=== PATIENT | male | born 1945 | race Caucasian/White ===

== ENCOUNTER 2016-10-04 08:12 | Inpatient (IN) | payer MEDICARE, BC, OTHER ==
--- NOTE | ~2016-10-04 | IDS ---
Interim Discharge Summary [facility] [address] [place]. [address] NAME: MIO GRULLON : 45 STATUS : ADM IN PAT#: [id number] AGE: 71 ADM/REG DATE : 10/04/16 MR#: [id number] REPORT SERV DATE: 10/08/16 DICTATED BY: MUSTAPHA BIRIMNGHAM DATE: 10/08/16 REPORT STATUS : Draft TRANSCRIBED BY: MODL DATE: 10/08/16 ADMISSION DATE: 10/04/2016 DISCHARGE DATE: CURRENT INTERIM DIAGNOSES LIST: Include, 1. Non-ST elevation myocardial infarction, coronary artery disease. 2. Hypertension. 3. Postop hyperglycemia with no history of diabetes, hemoglobin A1c 5.6. 4. Hyponatremia, most recently 130. 5. Small apical pneumothorax bilaterally. HISTORY OF PRESENT ILLNESS: This is a very pleasant 71-year-old white male, who originally presented to [facility] with a complaint of chest pain. Please see initial H and P of Dr. Ackerman. The patient admitted to the Hospitalist Service for further evaluation and treatment. CONSULTS DURING THIS ADMISSION: Include Cardiology Dr. Mensah; and Cardiothoracic Surgery, Dr. Silva; and Yaakov Gonsalez, nurse practitioner. Please see the discharge summary from [facility] by Dr. Ackerman as the patient was transferred to [facility] for heart catheterization. His cardiac catheterization showed obstructive coronary disease and was performed on 10/04/2016. Afterwards, he was seen in consultation by Cardiothoracic Surgery who planned for coronary artery bypass grafting. The patient did have an echocardiogram performed as well which an echocardiogram showed a normal ejection fraction with some mild to moderate mitral regurgitation, trace aortic stenosis. Carotid ultrasound showed normal carotid flow. No significant blockage. I saw the patient postoperatively where he was recovering well from his bypass surgery. Blood pressures were stable. I transitioned him off his IV insulin drip where he was on a simple sliding scale NovoLog for 24 hours postoperatively and then this was discontinued as well as he has no history of diabetes. He continues to do well, mobilizing and using his ICS, however, on chest x-ray review, he does have bilateral small apical pneumothorax, so we will follow up with chest x- ray in the a.m. and he is slightly hyponatremic, so I have put him on a slight fluid restriction with followup lab work. Overall, the patient has done well, and hopefully, we will be able to be discharged in the next 24 to 48 hours to home and appreciate Cardiology and Cardiothoracic Surgery's help on this patient. SEBASTIAN/NATANAEL Mustapha [place] NP / [id number] CC: Taina Cali M.D.
--- NOTE | ~2016-10-04 | DS ---
Discharge Summary [facility] [address] [facility] [place]. [address] NAME: MIO GRULLON : 45 STATUS : DIS IN PAT#: [id number] AGE: 71 ADM/REG DATE : 10/04/16 MR#: [id number] REPORT SERV DATE: 10/10/16 DICTATED BY: LINDSEY ARANGO DATE: 10/10/16 REPORT STATUS : Draft TRANSCRIBED BY: MODL DATE: 10/10/16 ADMISSION DATE: 10/04/2016 DISCHARGE DATE: 10/10/2016 ADDENDUM: This is addendum to the dictation on interim discharge summary dictated by nurse practitioner, Mustapha Renae, on 10/08/2016. I saw this patient on the next day on 10/09/2016 and on 10/10/2016, on the date of discharge. FINAL DIAGNOSES: 1. Status post non-ST elevation myocardial infarction. 2. Status post coronary artery bypass grafting. 3. Postoperative hyperglycemia, improved. 4. Hyponatremia, resolved. 5. Small apical pneumothorax, resolved, improved. 6. Fever, resolved. CONSULTANTS ON THE CASE: Cardiothoracic surgeon, Dr. Silva, and his nurse practitioner, Yaakov Gonsalez, as well as property field adjuster, Dr. Santiago. SURGERIES DONE: Coronary artery bypass grafting done by cardiothoracic surgeon, Dr. Silva, on 10/06/2016. Chest x-ray done on 10/10/2016 showed small bilateral pneumothoraces in the apices, unchanged since yesterday; basilar atelectasis with small effusions, unchanged from previous studies. For the details of hospitalization before 10/09/2016, please refer to interim discharge summary dictated by Mustapha Renae on 10/08/2016. The patient was transferred to [facility] and was seen by Mustapha Renae, and I saw only on 10/09/2016 and 10/10/2016. The patient was doing well. Yesterday, he had low-grade fever spikes, which have resolved today. He has normal urinalysis. Chest x-ray showed improvement for his pneumothorax. He was evaluated by cardiothoracic surgeons, nurse practitioner, Yaakov Gonsalez, he was okay with the patient to be discharged, as well as property field adjuster, Dr. Santiago, saw the patient today and he was okay to be discharged. The patient was afebrile and doing well and he was ready to be discharged home. He was discharged in stable condition. Dr. Santiago gave him prescriptions for Toprol-XL 25 mg p.o. daily as well as he will continue Lipitor 80 mg daily, aspirin 81 mg daily, multivitamins daily, lisinopril 10 mg a day, and glucosamine one tablet daily. The patient is to follow up with Dr. Mensah, his property field adjuster, on the 10/25/2016 at 0945 hours, follow up with Dr. Silva on 10/30/2016 at 10 o'clock, and with Dr. Morales Hernandez in one week on 10/17/2016 at 1500 hours. The patient was discharged in stable condition. I spent 45 minutes on discharge. Discharge Summary [address] [address] NAME: MIO GRULLON : 45 STATUS : DIS IN PAT#: [id number] AGE: 71 ADM/REG DATE : 10/04/16 MR#: [id number] REPORT SERV DATE: 10/10/16 DICTATED BY: LINDSEY ARANGO DATE: 10/10/16 REPORT STATUS : Draft TRANSCRIBED BY: NATANAEL DATE: 10/10/16 /NATANAEL Lindsey Arango M.D. / [id number] CC: [place] M.D.
--- NOTE | ~2016-10-04 | OP ---
Record Of Operation [facility] [address] [place]. [address] NAME: MIO GRULLON : 45 STATUS : ADM IN [facility]#: [id number] AGE: 71 ADM/REG DATE : 10/04/16 MR#: [id number] REPORT SERV DATE: 10/06/16 DICTATED BY: TAWANDA WARREN DATE: 10/05/16 REPORT STATUS : Draft TRANSCRIBED BY: MODL DATE: 10/05/16 DATE OF PROCEDURE: 10/05/2016 ATTENDING SURGEON: Tawanda Warren MD. ASSISTANTS: Kip Warren ANESTHESIOLOGIST: Morales Wilson M.D. PREOPERATIVE DIAGNOSES: 1. Non-ST segment elevation myocardial infarction. 2. Three-vessel coronary artery disease. 3. Hypertension. 4. Ktbr-go-ixkdxdox mitral regurgitation. POSTOPERATIVE DIAGNOSES: 1. Non-ST segment elevation myocardial infarction. 2. Three-vessel coronary artery disease. 3. Hypertension. 4. Krok-kz-wmyiweme mitral regurgitation with trace mild mitral regurgitation and trace AI. OPERATION PROCEDURE PERFORMED: 1. Median sternotomy. 2. Extracorporeal circulation. 3. Urgent coronary artery bypass grafting x4, left internal mammary artery, left anterior descending, reverse greater saphenous vein graft to D1, reverse greater saphenous vein graft to obtuse marginal #3, reverse greater saphenous vein graft to posterior descending artery. 4. PRASAD. 5. Endoscopic vein harvest of the right leg and the left thigh. COMPLICATIONS: None. POSTOPERATIVE CONDITION: Stable to CVICU. TUBES AND DRAINS: A 32-Moroccan straight mediastinal chest tube. A 24-Moroccan Edmundo drain at the left pleural space. Atrial and ventricular wires were placed. INTRAOPERATIVE FINDINGS: LAD was intramyocardial. There was excellent Doppler signal, all grafts both pre and post protamine. The right vein was taken out for the entire leg and a large portion of it from the middle portion of the leg was unusable secondary to extremely small size. Left thigh was used. The vein was 3-4 mm good conduit. Transesophageal echo showed preprocedure trace AI, nhxi-vd-caisfyun MR with normal function, postprocedure, post bypass, trace AI, trace to mild mitral regurgitation with normal function. Record Of Operation [facility] [address] [place]. [address] NAME: MIO GRULLON : 45 STATUS : ADM IN PAT#: [id number] AGE: 71 ADM/REG DATE : 10/04/16 MR#: [id number] REPORT SERV DATE: 10/06/16 DICTATED BY: TAWANDA WARREN DATE: 10/05/16 REPORT STATUS : Draft TRANSCRIBED BY: MODL DATE: 10/05/16 DETAILS OF CARDIOPULMONARY BYPASS GRAFTIN. Graft #1, left internal mammary artery, left anterior descending was 1.75 mm target. 2. Graft #2 reverse greater saphenous vein graft to D2. This was 1.5 mm diffusely diseased target. 3. Graft #3, reverse greater saphenous vein graft to obtuse margin, this was 1.75 mm target. 4. Graft #4, reverse greater saphenous vein graft to posterior descending artery. This was a 2 mm target. INDICATIONS FOR PROCEDURE: Mr. Grullon is a 71-year-old gentleman with a history of hypertension, a strong family history of early coronary artery disease who presented with rapid onset chest pain with troponin to 4. He was admitted for an NSTEMI, sternum heparin drip and ultimately had resolution of his symptoms, referred and for catheterization. Heart catheterization showed severe multivessel disease and moderate MR. He was seen, evaluated. Risks, benefits, alternatives were discussed with the patient including, but not limited to, bleeding, infection, stroke, , heart attack, need for future operations. All questions were answered. STS risk was calculated and discussed with the patient. Mortality 1%, morbidity mortality of 10%. PROCEDURE: The patient was brought to the operating room, placed supine on the operating room table. After satisfactory induction of general endotracheal anesthesia, was prepped and draped in usual sterile fashion. Median sternotomy was performed while endoscopic vein harvest was performed from the right left leg while a median sternotomy was performed. The internal mammary artery was taken down as a pedicle graft from its takeoff under the subclavian vein the bifurcation of the diaphragm. Systemic heparinization was achieved. The pedicle was clipped and divided with bifurcation after 3 minutes, it was infiltrated with papaverine. A 24-Moroccan Edmundo was placed in the left pleural space and exteriorized. The thymic tissue was divided in the midline. Pericardium was opened in the midline. Pericardial well was created. Ascending aortic cannulation was achieved through dual pursestring high on the ascending aorta. Antegrade root vent cardioplegia tack was placed. The dual stage venous cannula was placed. The conduit was inspected and prepared for bypass. The internal mammary was brought down through a wide V in the pericardium. The cardiopulmonary bypass was initiated after documentation of an adequate ACT. The targets were inspected. The LAD was felt to be intramyocardial, it was found after dissection. The cross-clamp was brought up and the heart was arrested with cold antegrade cardioplegia, switching to intermittent aliquots every 15 to 20 minutes throughout the remainder of the crossclamp. The vein grafts were performed as mentioned in the findings. The proximal anastomoses were performed after enlarging aortotomy with a 4.5 mm punch, vein graft markers were placed. All distal anastomoses were performed with 8-0 Surgipro. The internal mammary artery was brought down through a wide V in the pericardium and anastomosed to the left anterior descending with 8-0 Surgipro. The bulldog was removed. There was excellent flow both pre and post, the anastomosis and the graft, the pedicle was attached to the heart in two places using 6-0 Prolene. The grafts were de-aired. The cross-clamp was removed. Atrial and ventricular pacing wires were placed. The patient was able to be weaned cardiopulmonary bypass without incident. Protamine was administered. He was decannulated. All cannulation sites were oversewn with 4-0 Prolene. Hemostasis was achieved. A 32-Moroccan Record Of Operation [address] [address] NAME: MIO GRULLON : 45 STATUS : ADM IN PAT#: [id number] AGE: 71 ADM/REG DATE : 10/04/16 MR#: [id number] REPORT SERV DATE: 10/06/16 DICTATED BY: TAWANDA WARREN DATE: 10/05/16 REPORT STATUS : Draft TRANSCRIBED BY: MODVinod DATE: 10/05/16 chest tube was placed under the sternum. The sternum was reapproximated using stainless steel sternal wires after the pericardium was loosely reapproximated using 2-0 silk over the right ventricle and the ascending aorta. The clavipectoral fascia was reapproximated using #1 StrataFix, subcutaneous tissue was closed using running #1 StrataFix. The skin closed using 2-0 Quill. Dry sterile dressings were placed. He was transferred to CVICU in critical, stable condition. [facility]/VITORL Tawanda Warren MD / [id number] CC: MD Morales Dietz M.D.
--- NOTE | ~2016-10-04 | CN ---
Consultation Report [facility] [address] [place]. [address] NAME: MIO GRULLON : 45 STATUS : ADM IN PAT#: [id number] AGE: 71 ADM/REG DATE : 10/04/16 MR#: [id number] REPORT SERV DATE: 10/04/16 DICTATED BY: OSCAR RESENDIZ DATE: 10/04/16 REPORT STATUS : Draft TRANSCRIBED BY: MODL DATE: 10/04/16 CONSULTATION DATE OF CONSULTATION: 10/04/2016 REASON FOR CONSULTATION: Multivessel coronary artery disease and non-ST elevation NE. HISTORY OF PRESENT ILLNESS: This is a pleasant 71-year-old male, whom we are seeing today in consultation. He is relatively healthy with a history of high blood pressure and strong family history of coronary artery disease. He presented to the emergency room at [place] on 10/03/2016 with sudden onset of chest pain. In the emergency room, his troponin was positive at 2, but later increased to 4. He was admitted for non-ST elevation NE and started on a heparin drip which helped resolve his symptoms. The patient was taken for cardiac catheterization today and found to have multivessel coronary artery disease including 100% thrombotic occlusion of his proximal RCA, total chronic occlusion of the mid LAD, 50% stenosis to his left circumflex, 50% stenosis to his 3rd obtuse marginal. Ejection fraction calculated around 50% with 2+ mitral regurgitation noted in the setting of catheter-induced ectopy, which is likely a little bit over estimated. CT Surgery was asked to evaluate for urgent coronary artery bypass grafting. Currently, the patient is recovering after radial arteriogram with no complaints of chest pain or shortness of breath. His is with him at the bedside. PAST MEDICAL HISTORY: High blood pressure. PAST SURGICAL HISTORY: Prior surgical repair of his shoulder. SOCIAL HISTORY: No tobacco abuse or use of illicit drugs. He does occasionally drink alcohol. Lives at home with his . FAMILY HISTORY: His father at the age of 66 with a heart attack. ALLERGIES: NO KNOWN DRUG ALLERGIES. MEDICATIONS: Lisinopril 10 mg per day, aspirin 81 mg per day, multivitamin daily, and glucosamine daily. REVIEW OF SYSTEMS: A 10-point review of systems was obtained and is negative other than HPI. PHYSICAL EXAMINATION: VITAL SIGNS: From today vital signs, temperature 98.5, heart rate 63, blood pressure 131/74, respiratory rate 16, and O2 saturation 97% on 2 L. GENERAL: Pleasant, healthy-appearing male, in no acute distress. NEUROLOGIC: Alert and oriented x3. Pupils are equal, round, and reactive to light and Consultation Report [facility] [address] [place]. [address] NAME: MIO GRULLON : 45 STATUS : ADM IN PAT#: [id number] AGE: 71 ADM/REG DATE : 10/04/16 MR#: [id number] REPORT SERV DATE: 10/04/16 DICTATED BY: OSCAR RESENDIZ DATE: 10/04/16 REPORT STATUS : Draft TRANSCRIBED BY: NATANAEL DATE: 10/04/16 accommodation. He exhibits equal strength in bilateral upper extremities and bilateral lower extremities. PSYCH: Normal mood. Pleasant and talkative. HEENT: Head is normocephalic and atraumatic. Sclerae clear. Nose is midline with no abnormalities. Good dentition overall. Ears with no abnormalities. NECK: Supple with no thyromegaly or lymphadenopathy. LUNGS: Clear to auscultation bilaterally. CARDIAC: S1, S2 with no murmurs, rubs, or gallops. Carotids on auscultation with no obvious bruits. ABDOMEN: Soft, flat. Nontender with active bowel sounds. EXTREMITIES: Free of cyanosis, clubbing, or edema. Pedal pulses are present and equal bilaterally. LABORATORY DATA: White blood cell count 4.4, hemoglobin 13.5, hematocrit 38.4, platelets 203. Sodium 136, potassium 4.0, chloride 98, bicarbonate 28, BUN 12, creatinine 0.8, glucose 121. ASSESSMENT AND PLAN: This is a pleasant 71-year-old male, who is relatively healthy except for a history of high blood pressure with a strong family history of coronary artery disease. He presented to the emergency room at [facility] with rapid onset of chest pain yesterday. In the emergency room, his troponin was elevated consistent with NSTEMI. He was taken for arteriogram today which showed 3 to 4-vessel coronary artery disease as mentioned above with low to normal ejection fraction and questionable mitral regurgitation. The patient has had no further chest pain since started on heparin drip, but considering elevated troponin. He is in need of urgent coronary revascularization. I discussed the risk and benefits of surgery with him as well as his STS risks score. STS risk stratification for him and this particular surgery include an overall mortality of 1% and morbidity mortality of 10%. I discussed these findings in relation to his surgery and expectations for recovery and the patient is willing to proceed. We will await echocardiogram to either confirm or rule out mitral regurgitation. He also has carotid ultrasound pending. We will plan his coronary artery bypass surgery for tomorrow afternoon following our morning case. We appreciate the consultation and look forward to helping you take care of Mr. Mio Grullon. RAY/NATANAEL Oscar Resendiz NP / [id number] Consultation Report [address] [address] NAME: MIO GRULLON : 45 STATUS : ADM IN [facility]#: [id number] AGE: 71 ADM/REG DATE : 10/04/16 MR#: [id number] REPORT SERV DATE: 10/04/16 DICTATED BY: OSCAR RESENDIZ DATE: 10/04/16 REPORT STATUS : Draft TRANSCRIBED BY: NATANAEL DATE: 10/04/16 CC: [place] M.D.
[~2016-10-04 08:12] MED LIST: ASAB PO; CENTRUM TAB1 TAB PO; GGEXPUD PO; GLUCCHONDR PO; GLUCOSAMINEPO PO; HALF81 PO; MOBIC15 MG PO; MULTIVIT/MIN PO; PRIN10 PO
[2016-10-04 15:04] LABS: BASOPHILS 0.2 %; BASOPHILS ABSOLUTE 0.01 10/3/uL (0.0-0.16); EOSINOPHILS 0.9 %; EOSINOPHILS ABSOLUTE 0.05 10/3/uL (0.0-0.53); HEMATOCRIT 38.2 % (40.0-51.0); HEMOGLOBIN 13.6 g/dL (13.6-17.8); IMMATURE GRANULOCYTES 0.2 %; IMMATURE GRANULOCYTES ABSOLUTE 0.01 10/3/uL (0.0-0.11); LYMPHOCYTES 19.6 %; LYMPHOCYTES ABSOLUTE 1.05 10/3/uL (0.67-4.30); MEAN CORPUS HGB CONC 35.6 g/dL (32.0-36.0); MEAN CORPUSCULAR HEMOGLOB 32.9 pg (26.0-34.0); MEAN CORPUSCULAR VOLUME 92.3 fL (80-100); MEAN PLATELET VOLUME 9.7 fL (9.2-13.0); MONOCYTES 9.7 %; MONOCYTES ABSOLUTE 0.52 10/3/uL (0.21-1.20); NEUTROPHILS 69.4 %; NEUTROPHILS ABSOLUTE 3.71 10/3/uL (2.02-8.40); PLATELET COUNT 214 10/3/uL (150-400); RBC DISTRIBUTION WIDTH 12.1 % (12.0-16.0); RED CELL COUNT 4.14 10/6/uL (4.7-6.1); WHITE BLOOD CELLS 5.4 10/3/uL (4.5-10.5)
[2016-10-04 15:08] LABS: MANUAL DIFF NO %
[2016-10-04 15:19] LABS: CALCIUM, SERUM 8.4 MG/DL (8.5-10.4); CHLORIDE, SERUM 103 MMOL/L (96-112); CHOL/HDL RATIO(NOT ORDER) 2.6 (0-5); CHOLESTEROL 146 MG/DL (< 200); CO2 (CARBON DIOXIDE) 28 MMOL/L (24-34); CREATININE 0.71 MG/DL (0.70-1.30); GFR AFRICAN AMERICAN 109 ML/MIN (>=60); GFR NON AFRICAN AMERICAN 94 ML/MIN (>=60); GLUCOSE, SERUM 100 MG/DL (60-99); HDL CHOLESTEROL 56 MG/DL (> 39); LDL CHOLESTEROL 80 MG/DL (< 130); NON-HDL CHOLESTEROL 90 MG/DL (< 160); POTASSIUM, SERUM 4.2 MMOL/L (3.5-5.3); SODIUM, SERUM 139 MMOL/L (135-148)
[2016-10-04 15:20] LABS: BUN (BLOOD UREA NITROGEN) 8 MG/DL (6-23); TRIGLYCERIDE 54 MG/DL (< 150)
[2016-10-05 00:34] LABS: WBC (NOT ORDERED) (RFLEX) 0 (0-5)
[2016-10-05 00:41] LABS: ASCORBIC ACID (UR NOT ORDER) NEG (NEG); BILIRUBIN, URINE NEGATIVE (NEG); KETONE, URINE NEGATIVE (NEG); LEUKOCYTE ESTERASE(NOT OR NEG (NEG)
[2016-10-05 04:16] LABS: BASOPHILS 0.2 %; BASOPHILS ABSOLUTE 0.01 10/3/uL (0.0-0.16); EOSINOPHILS 2.1 %; HEMATOCRIT 38.6 % (40.0-51.0); HEMOGLOBIN 13.6 g/dL (13.6-17.8); LYMPHOCYTES 26.1 %; LYMPHOCYTES ABSOLUTE 1.22 10/3/uL (0.67-4.30); MEAN CORPUS HGB CONC 35.2 g/dL (32.0-36.0); MEAN CORPUSCULAR HEMOGLOB 32.9 pg (26.0-34.0); MEAN CORPUSCULAR VOLUME 93.5 fL (80-100); MEAN PLATELET VOLUME 9.9 fL (9.2-13.0); MONOCYTES 9.2 %; MONOCYTES ABSOLUTE 0.43 10/3/uL (0.21-1.20); NEUTROPHILS 62.4 %; NEUTROPHILS ABSOLUTE 2.92 10/3/uL (2.02-8.40); PLATELET COUNT 209 10/3/uL (150-400); RBC DISTRIBUTION WIDTH 12.1 % (12.0-16.0); RED CELL COUNT 4.13 10/6/uL (4.7-6.1); WHITE BLOOD CELLS 4.7 10/3/uL (4.5-10.5)
[2016-10-05 04:21] LABS: INTERNATIONAL NORMAL RATI 1.1 UNITS (-); PROTIME (NOT ORD) 14.5 SEC (12.0-14.5)
[2016-10-05 04:22] LABS: MANUAL DIFF NO %
[2016-10-05 04:25] LABS: ALBUMIN 3.3 G/DL (3.5-5.0); ALKALINE PHOSPHATASE 79 U/L (45-117); BUN (BLOOD UREA NITROGEN) 11 MG/DL (6-23); CALCIUM, SERUM 8.3 MG/DL (8.5-10.4); CHLORIDE, SERUM 102 MMOL/L (96-112); CO2 (CARBON DIOXIDE) 27 MMOL/L (24-34); CREATININE 0.84 MG/DL (0.70-1.30); GFR AFRICAN AMERICAN 102 ML/MIN (>=60); GFR NON AFRICAN AMERICAN 88 ML/MIN (>=60); GLOBULIN 3.2 G/DL (2.5-4.1); GLUCOSE, SERUM 115 MG/DL (60-99); SGOT(AST) 30 U/L (5-40); SGPT(ALT) 21 U/L (5-65); SODIUM, SERUM 137 MMOL/L (135-148); TOTAL BILIRUBIN 0.5 MG/DL (0-1.2); TOTAL PROTEIN 6.5 G/DL (6.0-8.5)
[2016-10-05 18:28] LABS: BE (BASE EXCESS) -1.1 MEQ/L (0 +/- 2.5); CARBOXYHEMOGLOBIN 0.3 % (0-3); HCO3 (ACTUAL BICARBONATE) 24.1 MEQ/L (23-27); HEMOBLOGIN CONTENT 11.9 G/DL (14-18); INSTRUMENT SERIAL # 11843; METHEMOGLOBIN 0.6 % (0-3); MODE SIMV; O2 CONTENT 16.5 VOL% (18-24); PCO2 (CO2 TENSION) 42 MMHG (35-45); PO2 (O2 TENSION) 135 MMHG (79-93); SAMPLE Arterial; TIDAL VOLUME 700 ML; pH 7.38 (7.37-7.43)
[2016-10-05 18:43] LABS: HEMOGLOBIN 11.1 g/dL (13.6-17.8); PLATELET COUNT 148 10/3/uL (150-400)
[2016-10-05 18:45] LABS: HEMATOCRIT 30.5 % (40.0-51.0)
[2016-10-05 18:51] LABS: FIBRINOGEN 228 MG/DL (230-462); INTERNATIONAL NORMAL RATI 1.5 UNITS (-); PARTIAL THROMBO TIME 31.6 SEC (22.5-37.2)
[2016-10-05 18:53] LABS: PROTIME (NOT ORD) 17.7 SEC (12.0-14.5)
[2016-10-05 18:55] LABS: BUN (BLOOD UREA NITROGEN) 11 MG/DL (6-23); CALCIUM, SERUM 8.4 MG/DL (8.5-10.4); CHLORIDE, SERUM 105 MMOL/L (96-112); CO2 (CARBON DIOXIDE) 29 MMOL/L (24-34); CREATININE 1.08 MG/DL (0.70-1.30); GFR AFRICAN AMERICAN 80 ML/MIN (>=60); GFR NON AFRICAN AMERICAN 69 ML/MIN (>=60); POTASSIUM, SERUM 3.5 MMOL/L (3.5-5.3); SODIUM, SERUM 140 MMOL/L (135-148)
[2016-10-05 18:57] LABS: GLUCOSE, SERUM 90 MG/DL (60-99)
[2016-10-06 00:23] LABS: HEMATOCRIT 31.9 % (40.0-51.0); HEMOGLOBIN 11.8 g/dL (13.6-17.8)
[2016-10-06 00:34] LABS: POTASSIUM, SERUM 4.1 MMOL/L (3.5-5.3)
[2016-10-06 02:00] LABS: HEMATOCRIT 33.1 % (40.0-51.0); MEAN CORPUS HGB CONC 36.3 g/dL (32.0-36.0); MEAN CORPUSCULAR HEMOGLOB 33.1 pg (26.0-34.0); MEAN CORPUSCULAR VOLUME 91.2 fL (80-100); MEAN PLATELET VOLUME 9.5 fL (9.2-13.0); PLATELET COUNT 159 10/3/uL (150-400); RBC DISTRIBUTION WIDTH 11.9 % (12.0-16.0); RED CELL COUNT 3.63 10/6/uL (4.7-6.1)
[2016-10-06 02:01] LABS: MANUAL DIFF YES %; WHITE BLOOD CELLS 11.5 10/3/uL (4.5-10.5)
[2016-10-06 02:06] LABS: INTERNATIONAL NORMAL RATI 1.4 UNITS (-); PROTIME (NOT ORD) 16.7 SEC (12.0-14.5)
[2016-10-06 02:15] LABS: CALCIUM, SERUM 8.7 MG/DL (8.5-10.4); CHLORIDE, SERUM 110 MMOL/L (96-112); CREATININE 0.89 MG/DL (0.70-1.30); GFR AFRICAN AMERICAN 100 ML/MIN (>=60); GFR NON AFRICAN AMERICAN 86 ML/MIN (>=60); GLUCOSE, SERUM 100 MG/DL (60-99); POTASSIUM, SERUM 4.1 MMOL/L (3.5-5.3); SODIUM, SERUM 143 MMOL/L (135-148)
[2016-10-06 02:16] LABS: BUN (BLOOD UREA NITROGEN) 15 MG/DL (6-23); CO2 (CARBON DIOXIDE) 22 MMOL/L (24-34)
[2016-10-06 02:18] LABS: BAND NEUTROPHILS 5 %; LYMPHOCYTES 1 %; LYMPHOCYTES ABSOLUTE (CALC) 0.12 10/3/uL (0.67-4.30); MONOCYTES 5 %; MONOCYTES ABSOLUTE (CALC) 0.58 10/3/uL (0.21-1.20); NEUTROPHILS ABSOLUTE (CALC) 10.81 10/3/uL (2.02-8.40); PLATELET ESTIMATE ADQ (ADEQUATE); RBC MORPHOLOGY NORM (NORMAL); SEGMENTED NEUTROPHIL (0) 89 %; TOTAL NUCLEATED CELLS 100
[2016-10-06 05:09] LABS: BE (BASE EXCESS) -3.2 MEQ/L (0 +/- 2.5); CARBOXYHEMOGLOBIN 0.3 % (0-3); DEVICE NC; HCO3 (ACTUAL BICARBONATE) 20.9 MEQ/L (23-27); HEMOBLOGIN CONTENT 12.4 G/DL (14-18); INSTRUMENT SERIAL # 11843; METHEMOGLOBIN 0.6 % (0-3); O2 CONTENT 16.4 VOL% (18-24); OPERATOR ID 13744; PCO2 (CO2 TENSION) 34 MMHG (35-45); PO2 (O2 TENSION) 78 MMHG (79-93); SAMPLE Arterial
[2016-10-06 17:52] LABS: HEMOGLOBIN 10.5 g/dL (13.6-17.8)
[2016-10-06 17:53] LABS: HEMATOCRIT 29.5 % (40.0-51.0)
[2016-10-06 18:00] LABS: POTASSIUM, SERUM 4.6 MMOL/L (3.5-5.3)
[2016-10-07 04:34] LABS: BASOPHILS 0.1 %; BASOPHILS ABSOLUTE 0.01 10/3/uL (0.0-0.16); EOSINOPHILS 0.1 %; EOSINOPHILS ABSOLUTE 0.01 10/3/uL (0.0-0.53); HEMATOCRIT 29.7 % (40.0-51.0); HEMOGLOBIN 10.4 g/dL (13.6-17.8); IMMATURE GRANULOCYTES 0.3 %; IMMATURE GRANULOCYTES ABSOLUTE 0.03 10/3/uL (0.0-0.11); LYMPHOCYTES ABSOLUTE 0.54 10/3/uL (0.67-4.30); MANUAL DIFF NO %; MEAN CORPUSCULAR HEMOGLOB 33.1 pg (26.0-34.0); MEAN CORPUSCULAR VOLUME 94.6 fL (80-100); MEAN PLATELET VOLUME 10.6 fL (9.2-13.0); MONOCYTES 14.7 %; NEUTROPHILS 79.8 %; PLATELET COUNT 178 10/3/uL (150-400); RBC DISTRIBUTION WIDTH 12.7 % (12.0-16.0); RED CELL COUNT 3.14 10/6/uL (4.7-6.1); WHITE BLOOD CELLS 10.9 10/3/uL (4.5-10.5)
[2016-10-07 04:41] LABS: BUN (BLOOD UREA NITROGEN) 17 MG/DL (6-23); CALCIUM, SERUM 8.4 MG/DL (8.5-10.4); CHLORIDE, SERUM 102 MMOL/L (96-112); CO2 (CARBON DIOXIDE) 26 MMOL/L (24-34); CREATININE 0.93 MG/DL (0.70-1.30); GFR AFRICAN AMERICAN 95 ML/MIN (>=60); GFR NON AFRICAN AMERICAN 82 ML/MIN (>=60); POTASSIUM, SERUM 4.7 MMOL/L (3.5-5.3)
[2016-10-07 04:44] LABS: GLUCOSE, SERUM 155 MG/DL (60-99); SODIUM, SERUM 135 MMOL/L (135-148)
[2016-10-08 05:58] LABS: BASOPHILS 0 %; EOSINOPHILS 0.8 %; EOSINOPHILS ABSOLUTE 0.07 10/3/uL (0.0-0.53); HEMATOCRIT 27.4 % (40.0-51.0); HEMOGLOBIN 9.6 g/dL (13.6-17.8); IMMATURE GRANULOCYTES 0.2 %; IMMATURE GRANULOCYTES ABSOLUTE 0.02 10/3/uL (0.0-0.11); LYMPHOCYTES 5.6 %; LYMPHOCYTES ABSOLUTE 0.52 10/3/uL (0.67-4.30); MEAN CORPUSCULAR HEMOGLOB 33.2 pg (26.0-34.0); MEAN CORPUSCULAR VOLUME 94.8 fL (80-100); MEAN PLATELET VOLUME 9.9 fL (9.2-13.0); MONOCYTES 15.4 %; MONOCYTES ABSOLUTE 1.43 10/3/uL (0.21-1.20); NEUTROPHILS ABSOLUTE 7.26 10/3/uL (2.02-8.40); PLATELET COUNT 171 10/3/uL (150-400); RBC DISTRIBUTION WIDTH 12.4 % (12.0-16.0); RED CELL COUNT 2.89 10/6/uL (4.7-6.1); WHITE BLOOD CELLS 9.3 10/3/uL (4.5-10.5)
[2016-10-08 06:03] LABS: MANUAL DIFF NO %
[2016-10-08 06:07] LABS: CALCIUM, SERUM 8.5 MG/DL (8.5-10.4); CHLORIDE, SERUM 96 MMOL/L (96-112); CREATININE 0.64 MG/DL (0.70-1.30); GFR AFRICAN AMERICAN 114 ML/MIN (>=60); GFR NON AFRICAN AMERICAN 99 ML/MIN (>=60); GLUCOSE, SERUM 130 MG/DL (60-99); POTASSIUM, SERUM 4.7 MMOL/L (3.5-5.3); SODIUM, SERUM 130 MMOL/L (135-148)
[2016-10-08 06:08] LABS: BUN (BLOOD UREA NITROGEN) 13 MG/DL (6-23); CO2 (CARBON DIOXIDE) 31 MMOL/L (24-34)
[2016-10-09 06:00] LABS: BUN (BLOOD UREA NITROGEN) 13 MG/DL (6-23); CALCIUM, SERUM 8.5 MG/DL (8.5-10.4); CHLORIDE, SERUM 96 MMOL/L (96-112); CO2 (CARBON DIOXIDE) 31 MMOL/L (24-34); GFR AFRICAN AMERICAN 117 ML/MIN (>=60); GFR NON AFRICAN AMERICAN 101 ML/MIN (>=60); GLUCOSE, SERUM 117 MG/DL (60-99); POTASSIUM, SERUM 4.2 MMOL/L (3.5-5.3); SODIUM, SERUM 133 MMOL/L (135-148)
[2016-10-09 11:45] LABS: ASCORBIC ACID (UR NOT ORDER) 40 (NEG); BILIRUBIN, URINE NEGATIVE (NEG); KETONE, URINE 20 MG/DL (NEG); LEUKOCYTE ESTERASE(NOT OR NEG (NEG); WBC (NOT ORDERED) (RFLEX) 2 (0-5)
[2016-10-10 04:03] LABS: BASOPHILS 0.1 %; BASOPHILS ABSOLUTE 0.01 10/3/uL (0.0-0.16); EOSINOPHILS 5.4 %; EOSINOPHILS ABSOLUTE 0.36 10/3/uL (0.0-0.53); HEMATOCRIT 26.3 % (40.0-51.0); HEMOGLOBIN 9.3 g/dL (13.6-17.8); IMMATURE GRANULOCYTES 0.3 %; IMMATURE GRANULOCYTES ABSOLUTE 0.02 10/3/uL (0.0-0.11); LYMPHOCYTES 10.4 %; MEAN CORPUS HGB CONC 35.4 g/dL (32.0-36.0); MEAN CORPUSCULAR HEMOGLOB 33.3 pg (26.0-34.0); MEAN CORPUSCULAR VOLUME 94.3 fL (80-100); MEAN PLATELET VOLUME 9.1 fL (9.2-13.0); MONOCYTES ABSOLUTE 1.28 10/3/uL (0.21-1.20); NEUTROPHILS 64.8 %; NEUTROPHILS ABSOLUTE 4.35 10/3/uL (2.02-8.40); PLATELET COUNT 215 10/3/uL (150-400); RBC DISTRIBUTION WIDTH 12.3 % (12.0-16.0); RED CELL COUNT 2.79 10/6/uL (4.7-6.1); WHITE BLOOD CELLS 6.7 10/3/uL (4.5-10.5)
[2016-10-10 04:06] LABS: MANUAL DIFF NO %
[2016-10-10 04:17] LABS: BUN (BLOOD UREA NITROGEN) 11 MG/DL (6-23); CALCIUM, SERUM 8.4 MG/DL (8.5-10.4); CHLORIDE, SERUM 98 MMOL/L (96-112); CO2 (CARBON DIOXIDE) 30 MMOL/L (24-34); CREATININE 0.61 MG/DL (0.70-1.30); GFR AFRICAN AMERICAN 116 ML/MIN (>=60); GFR NON AFRICAN AMERICAN 100 ML/MIN (>=60); GLUCOSE, SERUM 109 MG/DL (60-99); SODIUM, SERUM 133 MMOL/L (135-148)
[2016-10-10] MEDS ORDERED: LIPITOR80 MG (08:48)
[2016-10-10] MEDS ORDERED: NORCO1 TA1 PO (08:49)
[2016-10-10] MEDS ORDERED: TOPXL25 (08:49)
[2016-10-10] MEDS ORDERED: PLAVIX PO (08:50)
[2016-10-10] MEDS ORDERED: STERAPDS12 PO (08:51)
== END 2016-10-10 13:13 | disposition home or self-care (01) | DRG 234 ==
LOC: CORLMH 08:12 → SSU1 09:15 → CORLMH 13:38 → CCU 13:39 → SDC/OF 10-05 13:23 → CVICU 10-05 18:03 → 5NO 10-07 13:22
PROVIDERS: Hospitalist; Internal Medicine; Nurse Practitioner Family; Thoracic Surgery (Cardiothoracic Vascular Surgery)
PROC: 4A023N7 Measurement of Cardiac Sampling and Pressure, Left Heart, Percutaneous Approach (ICD-10-PCS; principal; 2016-10-04)
PROC: B2111ZZ Fluoroscopy of Multiple Coronary Arteries using Low Osmolar Contrast (ICD-10-PCS; 2016-10-04)
PROC: 021209W Bypass Coronary Artery, Three Arteries from Aorta with Autologous Venous Tissue, Open Approach (ICD-10-PCS; 2016-10-04)
PROC: B2151ZZ Fluoroscopy of Left Heart using Low Osmolar Contrast (ICD-10-PCS; 2016-10-04)
PROC: 02100Z9 Bypass Coronary Artery, One Artery from Left Internal Mammary, Open Approach (ICD-10-PCS; 2016-10-04)
PROC: 06BQ0ZZ Excision of Left Saphenous Vein, Open Approach (ICD-10-PCS; 2016-10-05)
PROC: 06BP0ZZ Excision of Right Saphenous Vein, Open Approach (ICD-10-PCS; 2016-10-05)
PROC: 5A1221Z Performance of Cardiac Output, Continuous (ICD-10-PCS; 2016-10-05)
PROC: B246ZZ4 Ultrasonography of Right and Left Heart, Transesophageal (ICD-10-PCS; 2016-10-05)
DX: I21.4 Non-ST elevation (NSTEMI) myocardial infarction (principal); I34.0 Nonrheumatic mitral (valve) insufficiency; E87.1 Hypo-osmolality and hyponatremia; D64.9 Anemia, unspecified; J95.811 Postprocedural pneumothorax; I10 Essential (primary) hypertension; I25.10 Atherosclerotic heart disease of native coronary artery without angina pectoris; R73.9 Hyperglycemia, unspecified; Z82.49 Family history of ischemic heart disease and other diseases of the circulatory system; Z79.82 Long term (current) use of aspirin; M19.90 Unspecified osteoarthritis, unspecified site; Z86.010 Personal history of colon polyps
CPT/HCPCS: 31720; 36415; 71010; 71020; 80048; 80053; 80061; 80076; 81001; 82330; 82803; 82805; 82947; 82962; 83036; 83735; 84132; 84295; 84484; 85014; 85018; 85025; 85049; 85347; 85379; 85384; 85610; 85730; 86850; 86900; 86901; 86920; 87641; 93005; 93306; 93312; 93320; 93325; 93458; 93882; 94002; 94640; 94660; 94770; 96372; 99152; 99153; 99285; A9270-GY; C1713; C1751; C1769; C1776; C1887; C1894; C8929; G0365; G0378; J0690; J1644; J2150; J2250; J2370; J2405; J2440; J2720; J2930; J3010; J3370; J3475; J3480; P9045; P9047; Q9957; Q9967